=== PATIENT | male | born 1990 | race Caucasian/White ===

== ENCOUNTER 2017-04-08 19:30 | Emergency (ER) | payer SELFPAY ==
[~2017-04-08] VITALS: Ht 175.3 cm; Wt 106.6 kg
[~2017-04-08 19:30] MED LIST: AMOX250S10 PO; AMX500CIP PO; HYDR1TAB8 PO; Ibuprofen PO; NFCHLORHGL PO; OXYC1TAB16 PO; PRM25T PO; PROM25SU10 PR
[2017-04-08 20:16] VITALS: BP 129/77
--- OUTSIDE RECORDS SUMMARY | 2017-04-11 13:03 | XMS REPORT | Continuity of Care Document ---
Author Author [facility] [address] Organization [facility] [address] Address Unknown Phone Unavailable Allergies Active Description Code Type Severity Reaction Onset Reported/Identified Relationship to Patient Clinical Status Yes No Known Drug Allergies [id number] Drug Allergy Unknown N/A 07/01/2011 Medications There is no data. Problems Date Dx Coded Attending Type Code Diagnosis Diagnosed By 07/03/2011 Ot 288.60 07/03/2011 Ot 305.1 07/03/2011 Ot 305.20 07/03/2011 Ot 305.70 07/03/2011 Ot 593.9 07/03/2011 Ot 782.4 07/03/2011 Ot 786.50 08/05/2013 VALERIA DDNathanael GINNY Ot 802.35 08/05/2013 LOWE DDS, GINNY Ot 802.38 08/05/2013 LOWE DDS, GINNY Ot 873.63 08/05/2013 LOWE DDS, GINNY Ot E000.8 08/05/2013 JEFFRYE DDS, GINNY Ot E960.0 Procedures There is no data. Results There is no data. Encounters ACCT No. Visit Date/Time Discharge Status Pt. Type Provider Facility Loc./Unit Complaint [id number] 08/03/2013 20:47:00 08/05/2013 14:20:00 DIS Outpatient GINNY SHAW DDS [facility] [id number] 07/01/2011 18:00:00 Document Registration
== END 2017-04-08 21:37 | disposition left against medical advice (07) ==
LOC: EDUNIT# 19:30 → ER 19:32
DX: R09.81 Nasal congestion (principal); R51 Headache; J11.1 Influenza due to unidentified influenza virus with other respiratory manifestations
CPT/HCPCS: 99281

== ENCOUNTER 2019-04-24 21:53 | Emergency (ER) | payer SELFPAY ==
[~2019-04-24] VITALS: Ht 177 cm; Wt 108.9 kg
[2019-04-24] MEDS ORDERED: RX-LORAZEPAM (ATIVAN) 0.5 MG TAB PPK#4 PO STA (22:12)
--- NOTE | 2019-04-24 22:16 | ED Integumentary General ---
General Chief Complaint: Skin/Wound Problems Stated Complaint: RASH Source: patient Exam Limitations: no limitations History of Present Illness Date Seen by Provider: Apr 24, 2019 Time Seen by Provider: 22:13 Initial Comments To ER with a rash. This began with a single large lesion to the anterior left lower abdomen. That was present for about a week by itself, then he developed a rash to the rest of his torso that is very itchy. He received a steroid injectio n last week in addition to prescription for hydroxyzine but reports intolerable itching still. He has difficulty sleeping at night due to the itching. In total the rash has been present for about 2 weeks. Timing/Duration: constant Severity: moderate Location: torso Associated Symptoms: denies symptoms Allergies and Home Medications Allergies Coded Allergies: No Known Drug Allergies (Unverified , 07/01/11) Home Medications No Active Prescriptions or Reported Meds Patient Home Medication List Home Medication List Reviewed: Yes Review of Systems Review of Systems Constitutional: see HPI EENTM: see HPI Respiratory: no symptoms reported Cardiovascular: no symptoms reported Genitourinary: no symptoms reported Musculoskeletal: no symptoms reported Skin: see HPI Psychiatric/Neurological: No Symptoms Reported Endocrine: No Symptoms Reported Hematologic/Lymphatic: No Symptoms Reported Past Kwfreml-Ocfgka-Zicnpn Hx Patient Social History Type Used: Cigarettes Recent Foreign Travel: No Contact w/Someone Who Travel: No Recent Hopitalizations: Yes (TONSIL/TUBES IN EARS) Immunizations Up To Date Tetanus Booster (TDap): Less than 5yrs Date of Influenza Vaccine: Nov 27, 2010 Past Medical History Surgeries: Yes (CORI MANDIBULAR FX'S SX 08/04/13) Respiratory: No Cardiac: No Neurological: No Reproductive Disorders: No Sexually Transmitted Disease: No HIV/AIDS: No Gastrointestinal: No Musculoskeletal: Yes (CORI MANDIBULAR FX'S W/THIS ADMIT 08/03/13) Fractures Endocrine: No Cancer: No Psychosocial: No Integumentary: No Blood Disorders: No Adverse Reaction/Blood Tranf: No Family Medical History Cancer MATERNAL GRANDMOTHER, Onset:Unknown (LUNG CA) Family history: Cardiovascular disease PATERNAL GRANDFATHER , Onset:Unknown Physical Exam Vital Signs Capillary Refill : General Appearance: WD/WN, no apparent distress HEENT: PERRL/EOMI, normal ENT inspection Respiratory: no respiratory distress, no accessory muscle use Neurologic/Psychiatric: alert, normal mood/affect, oriented x 3 Skin: normal color, warm/dry Skin Problem Location: other (no intraoral lesions nothing on the palms of the hands. There is a quarter sized patch well demarcated scaly dark red to the left anterior lower abdomen, there is a erythematous papular rash to the torso sparing the neck and upper chest, this affects the anterior torso mostly, the small of his back, the volar surface of both arms. Nothing at all on the dorsal surface of the arms or the upper back.) Progress/Results/Core Measures Results/Orders My Orders Orders - AZUL DÍAZ APRN Rx-Lorazepam (Rx-Ativan) (04/24/19 22:12) Departure Impression Primary Impression: Pityriasis rosea Disposition: 01 HOME, SELF-CARE Condition: Stable Departure-Patient Inst. Decision time for Depature: 22:18 Referrals: [facility] (PCP/Family) Primary Care Physician Patient Instructions: Pityriasis Rosea Add. Discharge Instructions: If the hydroxyzine is insufficient for controlling the itch then you can add lorazepam to it. All discharge instructions reviewed with patient and/or family. Voiced understanding. Scripts No Active Prescriptions or Reported Meds AZUL DÍAZ APRN Apr 24, 2019 22:16
[2019-04-24 22:29] VITALS: BP 134/92
== END 2019-04-24 22:30 | disposition home or self-care (01) ==
LOC: EDUNIT# 21:53 → ER 21:54
DX: L42 Pityriasis rosea (principal); Z80.1 Family history of malignant neoplasm of trachea, bronchus and lung; Z82.49 Family history of ischemic heart disease and other diseases of the circulatory system
CPT/HCPCS: 99283